=== PATIENT | female | born 1980 | race Caucasian/White ===

== ENCOUNTER 2020-01-28 13:12 | Observation (INO) | payer BC ==
[2020-01-28] MEDS ORDERED: SODIUM CHLORIDE 0.9% 1,000 ML IV STA (14:04)
[2020-01-28] MEDS ORDERED: ASPIRIN 81 MG PO STA (14:04)
--- NOTE | 2020-01-28 14:08 | ED ---
General Adult HPI - General Chief complaint: Arrhythmia/Palpitations Stated complaint: High Pulse Time Seen by Provider: 01/28/20 13:35 Source: patient, RN notes reviewed Mode of arrival: ambulatory Limitations: no limitations - History of Present Illness Initial comments: Patient is a pleasant 40-year-old female presenting to the emergency department with complaints of palpitations. Patient checked her heart rate on her heart rate was 161. Patient did have some sharp discomfort of her chest with associated tightness. Patient also felt short of breath. Patient is symptom- free at this time. Patient does have recordings from her watch with a heart rate 120 that is similar to EKG. Patient does have history of previous palpitations without diagnosis. Patient was at rest with onset of symptoms - Related Data Home Medications Medication Instructions Recorded Confirmed Levothyroxine Sodium [Synthroid] 112 mcg PO DAILY 01/28/20 01/28/20 Liothyronine Sodium [Cytomel] 10 mcg PO BID 01/28/20 01/28/20 busPIRone HCl [Buspar] 10 mg PO BID 01/28/20 01/28/20 hydroCHLOROthiazide [Hydrodiuril] 25 mg PO DAILY 01/28/20 01/28/20 Allergies Allergy/AdvReac Type Severity Reaction Status Date / Time No Known Allergies Allergy Verified 01/28/20 15:37 Review of Systems ROS Statement: Those systems with pertinent positive or pertinent negative responses have been documented in the HPI. ROS Other: All systems not noted in ROS Statement are negative. Constitutional: Denies: fever Eyes: Denies: eye pain ENT: Denies: ear pain Respiratory: Denies: cough Cardiovascular: Reports: as per HPI, palpitations Endocrine: Denies: fatigue Gastrointestinal: Denies: abdominal pain Genitourinary: Denies: dysuria Musculoskeletal: Denies: back pain Skin: Denies: rash Past Medical History Past Medical History: Hypertension, Thyroid Disorder History of Any Multi-Drug Resistant Organisms: None Reported Past Surgical History: No Surgical Hx Reported Past Psychological History: No Psychological Hx Reported Smoking Status: Never smoker Past Alcohol Use History: None Reported Past Drug Use History: None Reported General Exam Limitations: no limitations General appearance: alert, in no apparent distress Head exam: Present: normocephalic Eye exam: Present: normal appearance Neck exam: Present: normal inspection Respiratory exam: Present: normal lung sounds bilaterally Cardiovascular Exam: Present: tachycardia Expanded Peripheral pulses: 2+: Radial (R), Radial (L), Dorsalis Pedis (R), Dorsalis Pedis (L) GI/Abdominal exam: Present: soft. Absent: tenderness Extremities exam: Present: normal inspection. Absent: pedal edema, calf tenderness Neurological exam: Present: alert Psychiatric exam: Present: normal affect, normal mood Skin exam: Present: normal color Course Vital Signs 01/28/20 01/28/20 01/28/20 13:32 13:50 16:06 Temperature 98.5 F 97.5 F L Pulse Rate 135 H 95 Pulse Rate [ 116 H Lawyer ] Respiratory 20 18 Rate Blood Pressure 130/90 126/78 O2 Sat by Pulse 95 97 Oximetry - Reevaluation(s) Reevaluation #1: 01/28/20 15:19 Repeat EKG shows normal sinus rhythm 91. CT 128. QRS 84. QT 358. QTC 440. Normal axis. Normal QRS. No acute ST change EKG Findings - EKG Comments: EKG Findings:: Sinus tachycardia 126. CT 124. QRS 82. QT 302. QTC 437. Normal axis. Normal QRS. No acute ST change. Medical Decision Making - Medical Decision Making Patient reevaluated and resting comfortably in bed. Patient still has mild discomfort. Dr. sewell has been paged covering for Dr. Daniels, who admits for Dr. Nelson. Case was discussed with Dr. Vaughan, who will admit - Lab Data Result diagrams: 01/28/20 14:46 01/28/20 14:46 Lab Results 01/28/20 01/28/20 01/28/20 Range/Units 14:46 14:46 14:46 WBC 10.1 (3.8-10.6) k/uL RBC 5.00 (3.80-5.40) m/uL Hgb 15.3 (11.4-16.0) gm/dL Hct 46.7 H (34.0-46.0) % MCV 93.4 (80.0-100.0) fL MCH 30.7 (25.0-35.0) pg MCHC 32.8 (31.0-37.0) g/dL RDW 12.0 (11.5-15.5) % Plt Count 354 (150-450) k/uL Neutrophils % 69 % Lymphocytes % 22 % Monocytes % 6 % Eosinophils % 1 % Basophils % 1 % Neutrophils # 7.0 (1.3-7.7) k/uL Lymphocytes # 2.3 (1.0-4.8) k/uL Monocytes # 0.6 (0-1.0) k/uL Eosinophils # 0.1 (0-0.7) k/uL Basophils # 0.1 (0-0.2) k/uL PT 9.7 (9.0-12.0) sec INR 0.9 (<1.2) APTT 22.7 (22.0-30.0) sec Sodium 137 (137-145) mmol/L Potassium 3.6 (3.5-5.1) mmol/L Chloride 102 (98-107) mmol/L Carbon Dioxide 24 (22-30) mmol/L Anion Gap 11 mmol/L BUN 13 (7-17) mg/dL Creatinine 0.72 (0.52-1.04) mg/dL Est GFR (CKD-EPI)AfAm >90 (>60 ml/min/1.73 sqM) Est GFR (CKD-EPI)NonAf >90 (>60 ml/min/1.73 sqM) Glucose 96 (74-99) mg/dL Calcium 9.0 (8.4-10.2) mg/dL Magnesium 2.2 (1.6-2.3) mg/dL Total Bilirubin 0.6 (0.2-1.3) mg/dL AST 33 (14-36) U/L ALT 33 (4-34) U/L Alkaline Phosphatase 73 (38-126) U/L Troponin I (0.000-0.034) ng/mL Total Protein 8.1 (6.3-8.2) g/dL Albumin 4.6 (3.5-5.0) g/dL TSH 0.714 (0.465-4.680) mIU/L Free T4 1.37 (0.78-2.19) ng/dL Free T3 pg/mL 4.6 (2.8-5.3) pg/ml 01/28/20 Range/Units 14:46 WBC (3.8-10.6) k/uL RBC (3.80-5.40) m/uL Hgb (11.4-16.0) gm/dL Hct (34.0-46.0) % MCV (80.0-100.0) fL MCH (25.0-35.0) pg MCHC (31.0-37.0) g/dL RDW (11.5-15.5) % Plt Count (150-450) k/uL Neutrophils % % Lymphocytes % % Monocytes % % Eosinophils % % Basophils % % Neutrophils # (1.3-7.7) k/uL Lymphocytes # (1.0-4.8) k/uL Monocytes # (0-1.0) k/uL Eosinophils # (0-0.7) k/uL Basophils # (0-0.2) k/uL PT (9.0-12.0) sec INR (<1.2) APTT (22.0-30.0) sec Sodium (137-145) mmol/L Potassium (3.5-5.1) mmol/L Chloride (98-107) mmol/L Carbon Dioxide (22-30) mmol/L Anion Gap mmol/L BUN (7-17) mg/dL Creatinine (0.52-1.04) mg/dL Est GFR (CKD-EPI)AfAm (>60 ml/min/1.73 sqM) Est GFR (CKD-EPI)NonAf (>60 ml/min/1.73 sqM) Glucose (74-99) mg/dL Calcium (8.4-10.2) mg/dL Magnesium (1.6-2.3) mg/dL Total Bilirubin (0.2-1.3) mg/dL AST (14-36) U/L ALT (4-34) U/L Alkaline Phosphatase (38-126) U/L Troponin I <0.012 (0.000-0.034) ng/mL Total Protein (6.3-8.2) g/dL Albumin (3.5-5.0) g/dL TSH (0.465-4.680) mIU/L Free T4 (0.78-2.19) ng/dL Free T3 pg/mL (2.8-5.3) pg/ml - Radiology Data Radiology results: image reviewed (Chest x-ray shows no acute process) Disposition Clinical Impression: Tachycardia, Chest pain Disposition: ADMITTED IP TO THIS HOSP Is patient prescribed a controlled substance at d/c from ED?: No Decision Time: 15:59
--- NOTE | 2020-01-28 14:57 | XR ---
EXAMINATION TYPE: XR chest 2V DATE OF EXAM: 01/28/2020 COMPARISON: 09/06/2018 HISTORY: Chest pain TECHNIQUE: Frontal and lateral views of the chest are obtained. FINDINGS: There is no focal air space opacity. No evidence for pneumothorax. No pleural effusion. The cardiac silhouette size is within normal limits. The osseous structures are grossly intact. IMPRESSION: 1. No acute cardiopulmonary process.
[2020-01-28 15:06] LABS: Basophils # (A) 0.1 k/uL (0-0.2); Basophils % (A) 1 %; Eosinophils # (A) 0.1 k/uL (0-0.7); Eosinophils % (A) 1 %; HCT 46.7 % (34.0-46.0); HGB 15.3 gm/dL (11.4-16.0); Lymphocytes # (A) 2.3 k/uL (1.0-4.8); Lymphocytes % (A) 22 %; MCH 30.7 pg (25.0-35.0); MCHC 32.8 g/dL (31.0-37.0); MCV 93.4 fL (80.0-100.0); Mean Platelet Volume 7.3; Monocytes # (A) 0.6 k/uL (0-1.0); Monocytes % (A) 6 %; Neutrophils % (A) 69 %; Platelet Count 354 k/uL (150-450); WBC 10.1 k/uL (3.8-10.6)
[2020-01-28 15:19] LABS: INR 0.9 (<1.2); Partial Thromboplastin Time 22.7 sec (22.0-30.0); Prothrombin Time 9.7 sec (9.0-12.0)
[2020-01-28 15:20] LABS: ALT 33 U/L (4-34); AST 33 U/L (14-36); African American GFR (CKD) >90 (>60 ml/min/1.73 sqM); Albumin 4.6 g/dL (3.5-5.0); Alkaline Phosphatase 73 U/L (38-126); Anion Gap 11 mmol/L; Blood Urea Nitrogen 13 mg/dL (7-17); Carbon Dioxide 24 mmol/L (22-30); Chloride 102 mmol/L (98-107); Glucose 96 mg/dL (74-99); Magnesium 2.2 mg/dL (1.6-2.3); Non-African American GFR(CKD) >90 (>60 ml/min/1.73 sqM); Potassium 3.6 mmol/L (3.5-5.1); Sodium 137 mmol/L (137-145); Total Bilirubin 0.6 mg/dL (0.2-1.3); Total Protein 8.1 g/dL (6.3-8.2)
[2020-01-28 15:37] LABS: T4, Free (Free Thyroxine) 1.37 ng/dL (0.78-2.19)
[2020-01-28] MEDS ORDERED: NITROGLYCERIN SL TABS 0.4 MG TAB SUBLINGUAL PRN (15:59)
[2020-01-28] MEDS: NITROGLYCERIN OINT 1 INCH/GM PACKET TOPICAL SCH (17:48)
[2020-01-28] MEDS: busPIRone HCl 10 MG TAB PO SCH (20:19)
[2020-01-28] MEDS: LIOTHYRONINE SODIUM 5 MCG TAB PO SCH (20:19)
[2020-01-29] MEDS: NITROGLYCERIN OINT 1 INCH/GM PACKET TOPICAL SCH ×2 (01:44→05:48)
[2020-01-29 03:57] VITALS: TEMP 98.2
[2020-01-29 04:14] LABS: Cholesterol 152 mg/dL (<200); HDL Cholesterol 34 mg/dL (40-60); LDL Cholesterol,Calculated 85 mg/dL (0-99); Triglycerides 167 mg/dL (<150)
[2020-01-29] MEDS ORDERED: LEVOTHYROXINE 112 MCG TAB PO SCH (06:30)
[2020-01-29 08:44] VITALS: RESP 16
[2020-01-29] MEDS ORDERED: ASPIRIN 325 MG TAB PO SCH (09:00)
[2020-01-29] MEDS ORDERED: hydroCHLOROthiazide 25 MG TAB PO SCH (09:00)
[2020-01-29] MEDS: LIOTHYRONINE SODIUM 5 MCG TAB PO SCH (10:04)
[2020-01-29] MEDS: busPIRone HCl 10 MG TAB PO SCH (10:04)
--- NOTE | 2020-01-29 12:32 | P.HPIM ---
History of Present Illness This is a pleasant 40 years old female with past medical history of hypertension, hypothyroidism. She is a patient of Dr. Tilley and she sees his nurse practitioner Suad, she also follow-up with Dr. Fernández. Presents because of of dictation with chest pain or shortness of breath. She was at her dentist about 2 weeks ago and found her blood pressure 142/?, Rectal her she has had blood pressure and she gets anxious, yesterday she started having chest pain on the right upper chest, nonradiating about 45/10 in severity that like sharp with some dyspnea and no coughing. Her pain and dyspnea or completely resolved now. Over yesterday she noticed some palpitation and with apple watch she noticed her heart rate is up to 161, and running list on between 90s and 100. She gets it with simple walk and her heart rate increas es to 130s or 140s. Currently her symptoms improved. She denies smoking, alcohol or illicit drugs Vital signs stable. Labs unremarkable including CBC, BMP, INR, liver enzymes. Thyroid function tests, troponins 3 are less than 0.012. TSH and free T4 and free T3 aren't within normal limits. Chest x-ray: No acute process. EKG showing normal sinus rhythm at 91 BPM with QTC of 440. In the emergency room she was started on aspirin and nitroglycerin I offered test in the serum and patient declined, risks and benefits are explained also I explained for the patient the possibility of PE and doing computed tomography scan of the chest with IV contrast was risk of contrast including but not limited to ALLERGIC and nephrotoxicity are explained, patient does not want to do the test for now but she wants to do d-dimer and if his elevated and she agrees to do the test and she agrees to the risks Review of Systems CONSTITUTIONAL: No fever, no malaise, no fatigue. HEENT: No recent visual problems or hearing problems. Denied any sore throat. CARDIOVASCULAR: No orthopnea, PND, no palpitations, no syncope. PULMONARY: No shortness of breath, no cough, no hemoptysis. GASTROINTESTINAL: No diarrhea, no nausea, no vomiting, no abdominal pain. Normoactive bowel sounds. NEUROLOGICAL: No headaches, no weakness, no numbness. HEMATOLOGICAL: Denies any bleeding or petechiae. GENITOURINARY: Denies any burning micturition, frequency, or urgency. MUSCULOSKELETAL/RHEUMATOLOGICAL: Denies any joint pain, swelling, or any muscle pain. ENDOCRINE: Denies any polyuria or polydipsia. Past Medical History Past Medical History: Hypertension, Thyroid Disorder History of Any Multi-Drug Resistant Organisms: None Reported Past Surgical History: No Surgical Hx Reported Past Psychological History: No Psychological Hx Reported Smoking Status: Never smoker Past Alcohol Use History: None Reported Past Drug Use History: None Reported Medications and Allergies Home Medications Medication Instructions Recorded Confirmed Type Levothyroxine Sodium [Synthroid] 112 mcg PO DAILY 01/28/20 01/28/20 History Liothyronine Sodium [Cytomel] 10 mcg PO BID 01/28/20 01/28/20 History busPIRone HCl [Buspar] 10 mg PO BID 01/28/20 01/28/20 History hydroCHLOROthiazide [Hydrodiuril] 25 mg PO DAILY 01/28/20 01/28/20 History Allergies Allergy/AdvReac Type Severity Reaction Status Date / Time No Known Allergies Allergy Verified 01/28/20 15:37 Physical Exam Vitals: Vital Signs Temp Pulse Pulse Pulse Resp BP BP 01/29/20 09:00 95 16 01/29/20 08:42 98.2 F 95 16 119/81 01/29/20 03:00 98.2 F 88 18 116/57 01/28/20 20:26 91 105 H 18 01/28/20 20:23 98.1 F 105 H 18 105/70 01/28/20 16:13 98.0 F 91 16 127/83 01/28/20 16:06 97.5 F L 95 18 126/78 01/28/20 13:50 116 H 01/28/20 13:32 98.5 F 135 H 20 130/90 Pulse Ox 01/29/20 09:00 01/29/20 08:42 96 01/29/20 03:00 99 01/28/20 20:26 01/28/20 20:23 95 01/28/20 16:13 98 01/28/20 16:06 97 01/28/20 13:50 01/28/20 13:32 95 Intake and Output 01/28/20 01/29/20 01/29/20 22:59 06:59 14:59 Intake Total 240 Balance 240 Intake: Oral 240 Other: Voiding Method Toilet Toilet Toilet # Voids 2 1 # Bowel Movements 0 Weight 119.295 kg GENERAL: The patient is alert and oriented x3, not in any acute distress. Well developed, well nourished. HEENT: Pupils are round and equally reacting to light. EOMI. No scleral icterus. No conjunctival pallor. Normocephalic, atraumatic. No pharyngeal erythema. No t hyromegaly. CARDIOVASCULAR: S1 and S2 present. No murmurs, rubs, or gallops. PULMONARY: Chest is clear to auscultation, no wheezing or crackles. ABDOMEN: Soft, nontender, nondistended, normoactive bowel sounds. No palpable organomegaly. MUSCULOSKELETAL: No joint swelling or deformity. EXTREMITIES: No cyanosis, clubbing, or pedal edema. NEUROLOGICAL: Gross neurological examination did not reveal any focal deficits. SKIN: No rashes. No petechiae Results CBC & Chem 7: 01/28/20 14:46 01/28/20 14:46 Labs: Abnormal Lab Results - Last 24 Hours (Table) 01/28/20 01/28/20 Range/Units 14:46 14:46 Hct 46.7 H (34.0-46.0) % Triglycerides 167 H (<150) mg/dL HDL Cholesterol 34 L (40-60) mg/dL Thrombosis Risk Factor Assmnt - Choose All That Apply Each Factor Represents 1 point: Age 41-60 years Thrombosis Risk Factor Assessment Total Risk Factor Score: 1 Thrombosis Risk Factor Assessment Level: Low Risk Assessment and Plan Assessment: Palpitation, with episodic tachycardia Chest pain with some dyspnea, rule out cardiac causes. Completely resolved. We'll check d-dimer Hypertension Hypothyroidism Plan: This is a pleasant 40 years old female who presents with chest pain. No history of troponin, cardiology consult. Continue with aspirin. Check d-dimer, And if his elevated and patient agrees to CTA with IV contrast of the chest to rule out PE. Labs and medication were reviewed.. Continue same treatment. Continue with symptomatic treatment. Resume home medication. Monitor lytes and vitals. DVT and GI prophylaxis. Further recommendations of the clinical course of the patient DVT prophylaxis: Subcutaneous heparin GI Prophylaxis: Pepcid Prognosis is guarded
--- NOTE | 2020-01-29 12:59 | P.CRDCN ---
History of Present Illness Consult date: 01/29/20 Requesting physician: Bennett Leon Reason for Consult (text): Chest pain and tachycardia Consult reason: chest pain Chief complaint: Palpitations History of present illness: History of present illness: This is this is a 40-year-old female with past medical history of hypertension, hypothyroidism, depression. She states she had an episode of palpitations a couple years ago and found that her thyroid was low and has not had any problems recently. She followed up with her PCP about 2 weeks ago for high blood pressure was started on hydrochlorothiazide. She did have a repeat visit Friday of last week and at that time it was decided that she would be set up with a reporting coordinator for evaluation. Yesterday she found that her heart rate was 161 at rest on her fitness watch and she had initially developed sharp right upper chest pain and then felt a pressure across the upper chest area. She thought it was related to anxiety issues had problems with this in the past and takes medication for it. She came into [facility] emergency center found to have a heart rate of 105 and blood pressure 130/90, afebrile. CBC and CMP unremarkable. TSH 0.714. Troponin is negative on 3 draws. Triglycerides 167, cholesterol 152, LDL 85, HDL 34. Chest x-ray was normal. EKG was a sinus rhythm/sinus tachycardia at 126 bpm. At the time of evaluation, patient denies having any chest pain, palpitations, anxiety sensation. D-dimer 0.36. Review Of Systems: Constitutional: No fever, no chills. No weakness, fatigue or lethargy. EENT: No headache. No dizziness. Lungs: No shortness of breath, cough, no sputum production. No wheezing. Cardiovascular: No chest pain, no lower extremity edema. No palpitations. No paroxysmal nocturnal dyspnea. No orthopnea. No lightheadedness or dizziness. No syncopal episodes. Abdominal: No abdominal pain. No nausea, vomiting. No diarrhea. No constipation. No bloody or tarry stools.. No loss of appetite. Genitourinary: No dysuria, increased frequency, urgency. No urinary retention. Musculoskeletal: No myalgias. No muscle weakness, no gait dysfunction, no frequent falls. No back pain. No neck pain. Integumentary: No wounds, no lesions. No rash or pruritus. No unusual bruising. Neurologic: No aphasia. No facial droop. No change in mentation. No head injury. No headache. No paralysis. No paresthesia. Psychiatric: No depression. No anxiety. Endocrine: No abnormal blood sugars. Physical examination: Gen: This is a 40-year-old morbidly obese female. She is resting in bed and appears comfortable and in no acute distress. VS: Afebrile, heart rate 105, blood pressure 105/70, pulse ox 95% on room air. HEENT: Head is atraumatic, normocephalic. Pupils equal, round. Sclerae is anicteric. NECK: Supple. No JVD. No lymphadenopathy. No thyromegaly. LUNGS: Clear to auscultation. No wheezes or rhonchi. No intercostal retractions. HEART: Regular rate and rhythm. No murmur. ABDOMEN: Soft. Bowel sounds are present. No masses. No tenderness. EXTREMITIES: No pedal edema. No calf tenderness. Dorsalis pedis +2 bilaterally. NEUROLOGICAL: Patient is awake, alert and oriented x3. Cranial nerves 2 through 12 are grossly intact. Assessment: Palpitations secondary to sinus tachycardia, resolved Chest pain, resolved Hypothyroidism Generalized anxiety disorder Plan: Patient is cleared for discharge home Thank you kindly for this consultation Patient will follow with Dr. Hanks in the office. Nurse practitioner note has been reviewed, I agree with documented findings and plan of care. Patient was seen and examined. Past Medical History Past Medical History: Hypertension, Thyroid Disorder History of Any Multi-Drug Resistant Organisms: None Reported Past Surgical History: No Surgical Hx Reported Past Psychological History: No Psychological Hx Reported Smoking Status: Never smoker Past Alcohol Use History: None Reported Past Drug Use History: None Reported Medications and Allergies Home Medications Medication Instructions Recorded Confirmed Type Levothyroxine Sodium [Synthroid] 112 mcg PO DAILY 01/28/20 01/28/20 History Liothyronine Sodium [Cytomel] 10 mcg PO BID 01/28/20 01/28/20 History busPIRone HCl [Buspar] 10 mg PO BID 01/28/20 01/28/20 History hydroCHLOROthiazide [Hydrodiuril] 25 mg PO DAILY 01/28/20 01/28/20 History Allergies Allergy/AdvReac Type Severity Reaction Status Date / Time No Known Allergies Allergy Verified 01/28/20 15:37 Physical Exam Vitals: Vital Signs Temp Pulse Pulse Pulse Resp BP BP 01/29/20 09:00 95 16 01/29/20 08:42 98.2 F 95 16 119/81 01/29/20 03:00 98.2 F 88 18 116/57 01/28/20 20:26 91 105 H 18 01/28/20 20:23 98.1 F 105 H 18 105/70 01/28/20 16:13 98.0 F 91 16 127/83 01/28/20 16:06 97.5 F L 95 18 126/78 01/28/20 13:50 116 H 01/28/20 13:32 98.5 F 135 H 20 130/90 Pulse Ox 01/29/20 09:00 01/29/20 08:42 96 01/29/20 03:00 99 01/28/20 20:26 01/28/20 20:23 95 01/28/20 16:13 98 01/28/20 16:06 97 01/28/20 13:50 01/28/20 13:32 95 Intake and Output 01/28/20 01/29/20 01/29/20 22:59 06:59 14:59 Intake Total 240 240 Balance 240 240 Intake: Oral 240 240 Other: Voiding Method Toilet Toilet Toilet # Voids 2 1 # Bowel Movements 0 Weight 119.295 kg Results 01/28/20 14:46 01/28/20 14:46 Cardiac Enzymes 01/28/20 01/28/20 01/28/20 Range/Units 14:46 14:46 18:02 AST 33 (14-36) U/L Troponin I <0.012 <0.012 (0.000-0.034) ng/mL 01/28/20 Range/Units 20:32 AST (14-36) U/L Troponin I <0.012 (0.000-0.034) ng/mL Coagulation 01/28/20 Range/Units 14:46 PT 9.7 (9.0-12.0) sec APTT 22.7 (22.0-30.0) sec Lipids 01/28/20 Range/Units 14:46 Triglycerides 167 H (<150) mg/dL Cholesterol 152 (<200) mg/dL HDL Cholesterol 34 L (40-60) mg/dL CBC 01/28/20 Range/Units 14:46 WBC 10.1 (3.8-10.6) k/uL RBC 5.00 (3.80-5.40) m/uL Hgb 15.3 (11.4-16.0) gm/dL Hct 46.7 H (34.0-46.0) % Plt Count 354 (150-450) k/uL Comprehensive Metabolic Panel 01/28/20 Range/Units 14:46 Sodium 137 (137-145) mmol/L Potassium 3.6 (3.5-5.1) mmol/L Chloride 102 (98-107) mmol/L Carbon Dioxide 24 (22-30) mmol/L BUN 13 (7-17) mg/dL Creatinine 0.72 (0.52-1.04) mg/dL Glucose 96 (74-99) mg/dL Calcium 9.0 (8.4-10.2) mg/dL AST 33 (14-36) U/L ALT 33 (4-34) U/L Alkaline Phosphatase 73 (38-126) U/L Total Protein 8.1 (6.3-8.2) g/dL Albumin 4.6 (3.5-5.0) g/dL Current Medications Generic Name Dose Route Start Last Admin Trade Name Freq PRN Reason Stop Dose Admin Aspirin 325 mg 01/29/20 09:00 01/29/20 10:03 Aspirin PO 325 mg DAILY BRII Administration Buspirone HCl 10 mg 01/28/20 21:00 01/29/20 10:04 Buspar PO 10 mg BID BRII Administration Hydrochlorothiazide 25 mg 01/29/20 09:00 01/29/20 10:04 Hydrodiuril PO 25 mg DAILY BRII Administration Levothyroxine Sodium 112 mcg 01/29/20 06:30 01/29/20 05:48 Synthroid PO 112 mcg DAILY@0630 BRII Administration Liothyronine Sodium 10 mcg 01/28/20 21:00 01/29/20 10:04 Cytomel PO 10 mcg BID BRII Administration Nitroglycerin 0.4 mg 01/28/20 15:59 Nitrostat SUBLINGUAL Q5M PRN Chest Pain Nitroglycerin 0.5 inch 01/28/20 18:00 01/29/20 05:48 Nitro-Bid Oint TOPICAL 0.5 inch Q6HR BRII Administration Sodium Chloride 10 ml 01/28/20 21:00 01/28/20 20:19 Saline Flush IV 10 ml BID BRII Administration Intake and Output 01/28/20 01/29/20 01/29/20 22:59 06:59 14:59 Intake Total 240 240 Balance 240 240 Intake: Oral 240 240 Other: Voiding Method Toilet Toilet Toilet # Voids 2 1 # Bowel Movements 0 Weight 119.295 kg 01/28/20 14:46 01/28/20 14:46
[2020-01-29 15:10] VITALS: BP 138/82; PULSE 89
== END 2020-01-29 16:10 | disposition home or self-care (01) ==
LOC: EC 13:12 → 3NCARDOBS 15:59
PROVIDERS: ADMIT Internal Medicine; ATTEND Internal Medicine
DX: R07.89 Other chest pain (principal); R00.0 Tachycardia, unspecified; R06.02 Shortness of breath; I10 Essential (primary) hypertension; E03.9 Hypothyroidism, unspecified; F41.1 Generalized anxiety disorder; Z79.890 Hormone replacement therapy; Z79.899 Other long term (current) drug therapy; F32.9 Major depressive disorder, single episode, unspecified; E66.01 Morbid (severe) obesity due to excess calories; Z68.41 Body mass index [BMI] 40.0-44.9, adult; Z79.82 Long term (current) use of aspirin
CPT/HCPCS: 96360; 99285; 36415; 93005; 85379; 84439; 84481; 80061; 80053; 83735; 84443; 84484; 85025; 85610; 85730; 71046; G0378 ×2

== ENCOUNTER → 2020-04-06 | Outpatient (CLI) | payer BC ==
--- NOTE | 2020-04-06 18:47 | CONS ---
CONSULTATION DATE OF SERVICE: 04/06/2020 This 40-year-old lady has been evaluated in [facility] for possible obstructive sleep apnea-hypopnea syndrome. HISTORY OF PRESENT ILLNESS/SLEEP-WAKE EVALUATION: Patient's usual sleep schedule on working days is from 10 p.m. to 6:30 a.m. and on weekends from 11 p.m. until 8 a.m. Sometimes she has problems with falling asleep, but not more than for one hour. No TV in bedroom. She sleeps on the side position. She snores and wakes up from sleep up to 4 times, with 2 episodes of nocturia and positive history of panic attacks. In the morning the patient wakes up tired, has difficulties paying attention. She has episodes of irritability and anxiety during the day. [place] Sleepiness Scale is 4. PAST MEDICAL HISTORY: Positive for hypothyroidism, anxiety. PAST SURGICAL HISTORY: None. MEDICATIONS: 1. Synthroid 112 mcg once a day. 2. Cytomel 5 mcg two tablets once a day. 3. BuSpar 10 mg once a day. SOCIAL HISTORY: Negative for smoking or using alcohol. FAMILY HISTORY: Hypertension, hyperlipidemia, arthritis, sleep apnea, diabetes, thyroid problems, acid reflux. REVIEW OF SYSTEMS: Multiple awakenings from sleep. Difficulties initiating sleep. PHYSICAL EXAMINATION: GENERAL: A pleasant lady without distress. VITAL SIGNS: BP 133/72, HR 93, RR 15, height 5 feet 5-1/2 inches, weight 266.4 pounds, temperature 98.1, oxygen saturation at room air 100%. BMI 43.5. HEENT: PERRLA, EOMI. Evaluation of oropharynx showed tongue protrudes midline. Extremely low position of soft palate. Mallampati IV. NECK: Supple. No JVD. Thyroid is not palpable. Neck measures 15 inches in circumference. LUNGS: Clear to percussion and to auscultation. Good air exchange. No wheezing or rhonchi. HEART: S1, S2 regular. No murmurs, gallops or rubs. ABDOMEN: Obese. EXTREMITIES: No clubbing or cyanosis. ACID PAINTER: Awake, alert, and oriented X3. Cranial nerves 2 to 7 intact. There is no fasciculation or atrophy. noted. No focal deficits observed. IMPRESSION: 1. Snoring, multiple awakenings from sleep, extremely low position of soft palate; possible obstructive sleep apnea-hypopnea syndrome. 2. Obesity. BMI 43.5. 3. Hypothyroidism. 4. Anxiety. PLAN: 1. Home sleep apnea test for for evaluation of patient's breathing during sleep. 2. CPAP/BiPAP titration if sleep study confirms obstructive sleep apnea-hypopnea syndrome. 3. Preferable position during sleep on the side. 4. No driving if patient feels any sleepiness. 5. I will see patient for follow up visit to explain results of testing and following plan. Thank you very much for referring this patient for consultation. Sincerely, Alden Corley MD, PhD, FAASM Diplomat of [place] [employer] [place] [employer] Certified [place] Administrator [facility] [place] MMODL / IJN: [id number] /
== END | disposition home or self-care (01) ==
LOC: SLEEP 17:11
PROVIDERS: ATTEND Internal Medicine
DX: R06.83 Snoring (principal); E03.9 Hypothyroidism, unspecified; F41.9 Anxiety disorder, unspecified; E66.9 Obesity, unspecified; Z68.41 Body mass index [BMI] 40.0-44.9, adult; Z99.89 Dependence on other enabling machines and devices
CPT/HCPCS: 99211

== ENCOUNTER → 2020-07-13 | Outpatient (CLI) | payer BC ==
--- NOTE | 2020-07-13 23:12 | SFUN ---
SLEEP CENTER FOLLOW UP NOTE DATE OF SERVICE: 07/13/2020 This is a 40-year-old lady who has been followed in Sleep Center for treatment of obstructive sleep apnea-hypopnea syndrome. In April the patient had a home sleep apnea test which showed mild obstructive sleep apnea-hypopnea syndrome with total apnea- hypopnea index 9.4. Then the patient was started on treatment with CPAP therapy because she had additional problems related to anxiety. The patient tried to use the machine, but usually she would just take her mask off after starting to use it while falling asleep. [place] Sleepiness Scale today is 2. I checked her CPAP unit. It is on automatic regimen with a pressure 5 to 10, average pressure of 5. Usage is 21/30 nights, but none of the nights for more than 4 hours. Average usage only 0.4 hour. Leak is 16 L/minute. Apnea-hypopnea index reading from the machine is only 0.5, which is normal. MEDICATIONS: Synthroid, Cytomel, BuSpar. PHYSICAL EXAMINATION: GENERAL: A pleasant patient in no distress. VITAL SIGNS: BP 143/95, HR 92, RR 15, weight 266.2, temperature 97.6, oxygen saturation at room air 96%. HEENT: PERRLA, EOMI. Evaluation of oropharynx showed tongue protrudes midline. Extremely low position of soft palate. Mallampati IV. NECK: Supple. No JVD. Thyroid is not palpable. LUNGS: Clear to percussion and to auscultation. Good air exchange. No wheezing or rhonchi. HEART: S1, S2 regular. No murmurs, gallops or rubs. ABDOMEN: Obese. EXTREMITIES: No clubbing or cyanosis. ENROLLMENT SPECIALIST: Awake, alert, and oriented X3. Cranial nerves 2 to 7 intact. There is no fasciculation or atrophy. noted. No focal deficits observed. IMPRESSION: 1. Mild obstructive sleep apnea-hypopnea syndrome. At the present time, the patient does not demonstrate good compliance with CPAP treatment. 2. Obesity. 3. Hypothyroidism. 4. History of anxiety. PLAN: 1. Patient will try to use CPAP equipment every night for the whole night. 2. We will consider using a different mask. At present the patient is using nasal pillows; possibly they irritate her nose. We could try a nasal mask. 3. Losing weight. 4. Sleep hygiene with regular time in bed for at least 8 hours. 5. Preferable position during sleep is on the side. Thank you very much for allowing me to participate in the management of your patient. Sincerely, Alden Corley MD, PhD, FAASM Diplomat of [place] [employer] [place] [employer] of [facility] [place] MMTONY / TRISHA: [id number] /
== END | disposition home or self-care (01) ==
LOC: SLEEP 15:58
PROVIDERS: ATTEND Internal Medicine
DX: G47.33 Obstructive sleep apnea (adult) (pediatric) (principal); E66.9 Obesity, unspecified; E03.9 Hypothyroidism, unspecified; Z86.59 Personal history of other mental and behavioral disorders; Z99.89 Dependence on other enabling machines and devices; Z79.890 Hormone replacement therapy; Z79.899 Other long term (current) drug therapy

== ENCOUNTER → 2020-09-01 | Outpatient (CLI) | payer BC ==
--- NOTE | 2020-09-01 08:45 | US ---
EXAMINATION TYPE: US abdomen complete DATE OF EXAM: 09/01/2020 COMPARISON: NONE CLINICAL HISTORY: R10.811 right upper quadrant tenderness,. RUQ Pain. EXAM MEASUREMENTS: Liver Length: 15.3 cm Gallbladder Wall: .3 cm CBD: .6 cm Spleen: 11.8 cm Right Kidney: 10.8 x 4.2 x 3.6 cm Left Kidney: 11.3 x 5.1 x 3.9 cm Pancreas: Tail obscured by overlying bowel gas Liver: Hypoechoic area seen left lobe .8 x .7 x 1.4 cm Gallbladder: No stones seen Evidence for sonographic Mcghee's sign: No CBD: wnl Spleen: wnl Right Kidney: wnl Left Kidney: wnl Upper IVC: wnl Abd Aorta: wnl IMPRESSION: 1. Small hypoechoic nodule left lobe of the liver measuring 1.4 x 8 mm does not meet the criteria of a simple cyst. Consider follow-up MRI for further evaluation.
== END | disposition home or self-care (01) ==
LOC: RADUSWWP 07:36
PROVIDERS: ATTEND Family Medicine
DX: K76.89 Other specified diseases of liver (principal)
CPT/HCPCS: 76700

== ENCOUNTER 2021-01-29 09:32 | Emergency (ER) | payer BC ==
[2021-01-29 09:35] VITALS: RESP 18
[2021-01-29] MEDS ORDERED: SODIUM CHLORIDE 0.9% 1,000 ML IV STA (10:18)
--- NOTE | 2021-01-29 10:24 | ED ---
Female Urogenital HPI - General Chief complaint: Urogenital Stated complaint: pelvic pain Time Seen by Provider: 01/29/21 10:04 Source: patient Mode of arrival: ambulatory Limitations: no limitations - History of Present Illness Initial comments: 41-year-old female presented emergency Department with a chief complaint of abdominal pain. Patient reports she gets certain episodes like this where she starts to experience cramping pelvic pain and an urge to have a bowel movement but she is not able to immediately for about 10-15 minutes then she is able to have a bowel movement patient but is usually diarrhea . States this usually occurs whenever she is having her menstrual period which she is currently on at this time. Patient reports the pain is located in the suprapubic region. Did report some nausea when this occurred but has since resolved. She also reports the pain has mostly resolved right now it is minimal at this time. She denies a ny hematuria, hematochezia or melena. Denies any concern for . Denies any vaginal symptoms. Denies any previous abdominal surgical history. Last Menstrual Period: 01/28/21 - Related Data Home Medications Medication Instructions Recorded Confirmed Levothyroxine Sodium [Synthroid] 112 mcg PO DAILY 01/28/20 01/29/21 Liothyronine Sodium [Cytomel] 10 mcg PO BID 01/28/20 01/29/21 Allergies Allergy/AdvReac Type Severity Reaction Status Date / Time No Known Allergies Allergy Verified 01/29/21 11:08 Review of Systems ROS Statement: Those systems with pertinent positive or pertinent negative responses have been documented in the HPI. ROS Other: All systems not noted in ROS Statement are negative. Past Medical History Past Medical History: Hypertension, Thyroid Disorder History of Any Multi-Drug Resistant Organisms: None Reported Past Surgical History: No Surgical Hx Reported Past Psychological History: No Psychological Hx Reported Smoking Status: Never smoker Past Alcohol Use History: None Reported Past Drug Use History: None Reported General Exam Limitations: no limitations General appearance: alert, in no apparent distress, obese Head exam: Present: atraumatic, normocephalic, normal inspection Eye exam: Present: normal appearance, PERRL, EOMI Pupils: Present: normal accommodation ENT exam: Present: normal exam, normal oropharynx, mucous membranes moist Neck exam: Present: normal inspection, full ROM. Absent: tenderness, ly mphadenopathy Respiratory exam: Present: normal lung sounds bilaterally. Absent: respiratory distress, wheezes, rales Cardiovascular Exam: Present: regular rate, normal heart sounds. Absent: systolic murmur, diastolic murmur GI/Abdominal exam: Present: soft, tenderness (Minimal suprapubic tenderness). Absent: distended, guarding, rebound, rigid Extremities exam: Present: normal inspection, full ROM, normal capillary refill. Absent: tenderness, pedal edema, joint swelling Back exam: Present: normal inspection, full ROM. Absent: tenderness, CVA tenderness (R), CVA tenderness (L) Neurological exam: Present: alert, oriented X3 Psychiatric exam: Present: normal affect, normal mood Skin exam: Present: warm, dry, intact, normal color Course Vital Signs 01/29/21 01/29/21 09:33 13:15 Temperature 97.9 F 97.7 F Pulse Rate 111 H 101 H Respiratory 18 18 Rate Blood Pressure 138/87 136/88 O2 Sat by Pulse 96 98 Oximetry Medical Decision Making - Medical Decision Making 41-year-old female presented emergency Department with a chief complaint of abdominal pain. On physical examination, suprapubic and lower abdominal tenderness. She also complains of some diarrhea. KUB shows no signs of obstruction but there is signs to suggest arthritis. Laboratory work reveals mild leukocytosis. CMP is unremarkable. UA shows hematuria, patient is currently on her menstrual period. At this time. Patient was only given IV fluids. Diarrhea is likely secondary to enteritis. Patient was advised to follow with her primary care physician. Return bodies were thoroughly discussed patient is an attending agreeable. Case discussed with physician. - Lab Data Result diagrams: 01/29/21 10:50 01/29/21 12:30 Lab Results 01/29/21 01/29/21 01/29/21 Range/Units 10:50 10:50 10:50 WBC 13.5 H (3.8-10.6) k/uL RBC 5.11 (3.80-5.40) m/uL Hgb 15.9 (11.4-16.0) gm/dL Hct 48.9 H (34.0-46.0) % MCV 95.6 (80.0-100.0) fL MCH 31.0 (25.0-35.0) pg MCHC 32.5 (31.0-37.0) g/dL RDW 13.1 (11.5-15.5) % Plt Count 306 (150-450) k/uL MPV 8.0 Neutrophils % 85 % Lymphocytes % 10 % Monocytes % 4 % Eosinophils % 1 % Basophils % 0 % Neutrophils # 11.4 H (1.3-7.7) k/uL Lymphocytes # 1.4 (1.0-4.8) k/uL Monocytes # 0.5 (0-1.0) k/uL Eosinophils # 0.2 (0-0.7) k/uL Basophils # 0.0 (0-0.2) k/uL Sodium (137-145) mmol/L Potassium (3.5-5.1) mmol/L Chloride (98-107) mmol/L Carbon Dioxide (22-30) mmol/L Anion Gap mmol/L BUN (7-17) mg/dL Creatinine (0.52-1.04) mg/dL Est GFR (CKD-EPI)AfAm (>60 ml/min/1.73 sqM) Est GFR (CKD-EPI)NonAf (>60 ml/min/1.73 sqM) Glucose (74-99) mg/dL Calcium (8.4-10.2) mg/dL Total Bilirubin (0.2-1.3) mg/dL AST (14-36) U/L ALT (4-34) U/L Alkaline Phosphatase (38-126) U/L Total Protein (6.3-8.2) g/dL Albumin (3.5-5.0) g/dL Lipase (23-300) U/L Urine Color Light Red Urine Appearance Cloudy H (Clear) Urine pH 5.0 (5.0-8.0) Ur Specific [place] 1.024 (1.001-1.035) Urine Protein 1+ H (Negative) Urine Glucose (UA) Negative (Negative) Urine Ketones Negative (Negative) Urine Blood Large H (Negative) Urine Nitrite Negative (Negative) Urine Bilirubin Negative (Negative) Urine Urobilinogen <2.0 (<2.0) mg/dL Ur Leukocyte Esterase Small H (Negative) Urine RBC >182 H (0-5) /hpf Urine WBC 7 H (0-5) /hpf Ur Squamous Epith Cells 4 (0-4) /hpf Urine HCG, Qual Not Detected (Not Detectd) 08/23/21 Range/Units 12:30 WBC (3.8-10.6) k/uL RBC (3.80-5.40) m/uL Hgb (11.4-16.0) gm/dL Hct (34.0-46.0) % MCV (80.0-100.0) fL MCH (25.0-35.0) pg MCHC (31.0-37.0) g/dL RDW (11.5-15.5) % Plt Count (150-450) k/uL MPV Neutrophils % % Lymphocytes % % Monocytes % % Eosinophils % % Basophils % % Neutrophils # (1.3-7.7) k/uL Lymphocytes # (1.0-4.8) k/uL Monocytes # (0-1.0) k/uL Eosinophils # (0-0.7) k/uL Basophils # (0-0.2) k/uL Sodium 139 (137-145) mmol/L Potassium 4.1 (3.5-5.1) mmol/L Chloride 109 H (98-107) mmol/L Carbon Dioxide 20 L (22-30) mmol/L Anion Gap 10 mmol/L BUN 11 (7-17) mg/dL Creatinine 0.65 (0.52-1.04) mg/dL Est GFR (CKD-EPI)AfAm >90 (>60 ml/min/1.73 sqM) Est GFR (CKD-EPI)NonAf >90 (>60 ml/min/1.73 sqM) Glucose 90 (74-99) mg/dL Calcium 8.5 (8.4-10.2) mg/dL Total Bilirubin 0.5 (0.2-1.3) mg/dL AST 23 (14-36) U/L ALT 15 (4-34) U/L Alkaline Phosphatase 73 (38-126) U/L Total Protein 7.5 (6.3-8.2) g/dL Albumin 4.1 (3.5-5.0) g/dL Lipase 52 (23-300) U/L Urine Color Urine Appearance (Clear) Urine pH (5.0-8.0) Ur Specific [place] (1.001-1.035) Urine Protein (Negative) Urine Glucose (UA) (Negative) Urine Ketones (Negative) Urine Blood (Negative) Urine Nitrite (Negative) Urine Bilirubin (Negative) Urine Urobilinogen (<2.0) mg/dL Ur Leukocyte Esterase (Negative) Urine RBC (0-5) /hpf Urine WBC (0-5) /hpf Ur Squamous Epith Cells (0-4) /hpf Urine HCG, Qual (Not Detectd) - EKG Data EKG Comments: Sinus rhythm Ventricular rate 82, PA 124, QRS 70, QTC 455. Disposition Clinical Impression: Abdominal pain, Enteritis Disposition: HOME SELF-CARE Condition: Stable Instructions (If sedation given, give patient instructions): Abdominal Pain (ED) Additional Instructions: Follow with primary care physician. Return to emergency department if symptoms worsen. Is patient prescribed a controlled substance at d/c from ED?: No Referrals: Bill Hamm DO [Primary Care Provider] - 1-2 days Time of Disposition: 13:13
[2021-01-29 11:05] LABS: Basophils % (A) 0 %; Eosinophils # (A) 0.2 k/uL (0-0.7); Eosinophils % (A) 1 %; HCT 48.9 % (34.0-46.0); HGB 15.9 gm/dL (11.4-16.0); Lymphocytes # (A) 1.4 k/uL (1.0-4.8); Lymphocytes % (A) 10 %; MCHC 32.5 g/dL (31.0-37.0); MCV 95.6 fL (80.0-100.0); Monocytes # (A) 0.5 k/uL (0-1.0); Monocytes % (A) 4 %; Neutrophils # (A) 11.4 k/uL (1.3-7.7); Neutrophils % (A) 85 %; Platelet Count 306 k/uL (150-450); RBC 5.11 m/uL (3.80-5.40); RDW 13.1 % (11.5-15.5); WBC 13.5 k/uL (3.8-10.6)
--- NOTE | 2021-01-29 11:47 | XR ---
EXAMINATION TYPE: XR KUB DATE OF EXAM: 01/29/2021 Comparison: None Clinical History: 41-year-old female abdominal pain Findings: Lung bases are clear. No evidence for free intraperitoneal air. No dilated small bowel. A few small air-fluid levels noted within the colon. No dilated small bowel or differential air-fluid levels seen. No suspicious calcifications. Impression: A few small colonic air-fluid levels suggesting liquid stool. Consider enteritis or ileus. No evidenc e for free air or bowel obstruction.
[2021-01-29 11:57] LABS: Appearance,Urine Cloudy (Clear); Bilirubin,Urine Negative (Negative); Blood,Urine Large (Negative); Color,Urine Light Red; Glucose,Urine (UA) Negative (Negative); Ketones,Urine Negative (Negative); Leukocyte Esterase,Urine Small (Negative); Nitrite,Urine Negative (Negative); Protein,Urine 1+ (Negative); RBC,Urine >182 /hpf (0-5); Specific Gravity,Urine 1.024 (1.001-1.035); Squamous Epithelial Cell,Urine 4 /hpf (0-4); Urobilinogen,Urine <2.0 mg/dL (<2.0); WBC,Urine 7 /hpf (0-5)
[2021-01-29 12:58] LABS: ALT 15 U/L (4-34); AST 23 U/L (14-36); African American GFR (CKD) >90 (>60 ml/min/1.73 sqM); Albumin 4.1 g/dL (3.5-5.0); Alkaline Phosphatase 73 U/L (38-126); Anion Gap 10 mmol/L; Blood Urea Nitrogen 11 mg/dL (7-17); Calcium 8.5 mg/dL (8.4-10.2); Carbon Dioxide 20 mmol/L (22-30); Chloride 109 mmol/L (98-107); Glucose 90 mg/dL (74-99); Lipase 52 U/L (23-300); Non-African American GFR(CKD) >90 (>60 ml/min/1.73 sqM); Potassium 4.1 mmol/L (3.5-5.1); Sodium 139 mmol/L (137-145); Total Bilirubin 0.5 mg/dL (0.2-1.3); Total Protein 7.5 g/dL (6.3-8.2)
[2021-01-29 15:55] VITALS: BP 136/88; PULSE 101; TEMP 97.7
== END 2021-01-29 13:15 | disposition home or self-care (01) ==
LOC: EC 09:32
DX: K52.9 Noninfective gastroenteritis and colitis, unspecified (principal); I10 Essential (primary) hypertension; E07.9 Disorder of thyroid, unspecified; Z79.890 Hormone replacement therapy
CPT/HCPCS: 36415; 74018; 80053; 81001; 81025; 83690; 85025; 93005; 96360; 99284

== ENCOUNTER → 2021-02-21 | Outpatient (CLI) | payer BC ==
--- NOTE | 2021-02-21 11:38 | CT ---
EXAMINATION TYPE: CT abdomen pelvis w con DATE OF EXAM: 02/21/2021 HISTORY: Lower pelvic and perineal pain CT DLP: 2255.2mGycm Automated Exposure Control for Dose Reduction was Utilized. CONTRAST: CT scan of the abdomen and pelvis is performed with IV Contrast, patient injected with 100 mL of Isov ue 300. COMPARISON: Abdominal x-ray January 29, 2021. Ultrasound abdomen September 01, 2020 FINDINGS: LUNG BASES: No significant abnormality is appreciated. LIVER/GB: Visualized liver is hypodense relative to spleen consistent with mild diffuse fatty infiltr ation. PANCREAS: No significant abnormality is seen. SPLEEN: Small splenule anterior hilum axial image 24 incidentally noted.. ADRENALS: No significant abnormality is seen. KIDNEYS: Occasional tiny hypodense lesions throughout both kidneys consistent with benign simple cyst s. Symmetric cortical medullary uptake and excretion is seen without hydronephrosis. BOWEL: Oral contrast reaches level proximal sigmoid colon. No suspicious small or large bowel dilatat ion. Small size hiatal hernia. UTERUS/ADNEXA: Anteverted uterus projects to left of midline. There is lobulated isodense mass along the left fundus consistent with intrauterine subserosal fibroid. No free fluid. Normal size bilateral ovaries axial image 72. LYMPH NODES: No greater than 1cm abdominal or pelvic lymph nodes are appreciated. OSSEOUS STRUCTURES: Moderate disc space narrowing lumbosacral junction. Clgu-ag-uvrbnfos facet arthro angel mid to lower lumbar spine. OTHER: Tiny fat-containing umbilical hernia. IMPRESSION: No acute finding is seen to account for patient's clinical symptoms of pelvic and perinea l pain. Other incidental findings as noted above.
== END | disposition home or self-care (01) ==
LOC: RADCTMAIN 02-16 15:52
PROVIDERS: ATTEND Family Medicine
DX: R10.2 Pelvic and perineal pain (principal); R10.84 Generalized abdominal pain
CPT/HCPCS: 74177; Q9967

== ENCOUNTER → 2023-01-02 | Outpatient (CLI) | payer BC ==
--- NOTE | 2023-01-02 10:26 | CT ---
EXAMINATION TYPE: CT abdomen wo con CT DLP: 322 mGycm, Automated exposure control for dose reduction was used. DATE OF EXAM: 01/02/2023 8:09 AM COMPARISON: CT abdomen pelvis most recent from 02/21/2021 CLINICAL INDICATION:Female, 42 years old with history of R19.09 K21.9 Q40.1; Bulge under breast bon e TECHNIQUE: Axial CT of the abdomen. Sagittal and [facility] Contrast used: mL of , (none if empty) Oral contrast used: with Oral Contrast (none if empty) FINDINGS: LOWER CHEST: Unremarkable ABDOMEN LIVER: Unremarkable GALLBLADDER AND BILE DUCTS: Unremarkable. PANCREAS: Unremarkable. SPLEEN: Small splenule is present. ADRENAL GLANDS: Unremarkable. KIDNEYS AND URETERS: No evidence of hydronephrosis or renal calculus. The ureters are unremarkable. STOMACH AND BOWEL: No evidence of bowel obstruction. PERITONEUM/RETROPERITONEUM: No evidence of pneumoperitoneum or free fluid. VASCULATURE: No evidence of aortic aneurysm. MUSCULOSKELETAL: No acute osseous abnormalities, there is a protuberant xiphoid process just under th e breast bone. No suspicious masses within the subcutaneous tissues. LYMPH NODES: No gross evidence for lymphadenopathy. SOFT TISSUE/ABDOMINAL WALL: Unremarkable IMPRESSION: No evidence for subcutaneous mass upper the abdomen. There is a protuberant xiphoid process which cou ld correlate patient's finding bulge which is located just under the sternum.
== END | disposition home or self-care (01) ==
LOC: RADCTMAIN 07:20
PROVIDERS: ATTEND Family Medicine
DX: K21.9 Gastro-esophageal reflux disease without esophagitis (principal); Q40.1 Congenital hiatus hernia; R19.09 Other intra-abdominal and pelvic swelling, mass and lump
CPT/HCPCS: 74150

== ENCOUNTER 2024-08-01 12:00 | Emergency (ER) | payer BC ==
[2024-08-01 12:19] VITALS: TEMP 98.2
[2024-08-01] MEDS: ASPIRIN 81 MG PO STA (13:05)
[2024-08-01] MEDS: SODIUM CHLORIDE 0.9% 1,000 ML IV STA (13:05)
[2024-08-01 13:21] LABS: Basophils # (A) 0.1 k/uL (0-0.2); Basophils % (A) 1 %; Eosinophils # (A) 0.2 k/uL (0-0.7); Eosinophils % (A) 2 %; HCT 44.3 % (34.0-46.0); HGB 14.6 gm/dL (11.4-16.0); Lymphocytes # (A) 1.9 k/uL (1.0-4.8); Lymphocytes % (A) 20 %; MCH 30.5 pg (25.0-35.0); MCHC 32.9 g/dL (31.0-37.0); MCV 92.8 fL (80.0-100.0); Mean Platelet Volume 6.9; Monocytes # (A) 0.4 k/uL (0-1.0); Monocytes % (A) 4 %; Neutrophils % (A) 72 %; Platelet Count 353 k/uL (150-450); RBC 4.78 m/uL (3.80-5.40); RDW 12.7 % (11.5-15.5); WBC 9.7 k/uL (3.8-10.6)
[2024-08-01 13:35] LABS: ALT 21 U/L (4-34); AST 24 U/L (14-36); African American GFR (CKD) >90 (>60 ml/min/1.73 sqM); Albumin 4.5 g/dL (3.5-5.0); Alkaline Phosphatase 63 U/L (38-126); Anion Gap 13 mmol/L; Blood Urea Nitrogen 10 mg/dL (7-17); Calcium 9.1 mg/dL (8.4-10.2); Carbon Dioxide 20 mmol/L (22-30); Chloride 106 mmol/L (98-107); Glucose 93 mg/dL (74-99); Lipase 74 U/L (23-300); Magnesium 2.1 mg/dL (1.6-2.3); Non-African American GFR(CKD) >90 (>60 ml/min/1.73 sqM); Partial Thromboplastin Time 23.9 sec (22.0-30.0); Prothrombin Time 11.3 sec (10.0-12.5); Sodium 139 mmol/L (137-145); Total Bilirubin 0.7 mg/dL (0.2-1.3)
[2024-08-01 13:44] LABS: NT-Pro-B-Type Natriuretic Pept 88 pg/mL
--- NOTE | 2024-08-01 13:55 | ED ---
General Adult HPI - General Chief complaint: Chest Pain Stated complaint: chest pain Time Seen by Provider: 08/01/24 12:24 Source: patient Mode of arrival: ambulatory Limitations: no limitations - History of Present Illness Initial comments: Patient is a 44-year-old female past medical hypothyroidism presenting today for headache, hypertension and chest pain. Patient states she had a migraine headache on Friday like she normally would and her headache improved however she has had a slight headache that has continued throughout the weekend which is not normal for her. States over the last few days she has also noted bilateral chest pain that varies between being pressure-like and sharp. It does not occur with any particular pattern and does not seem to be exacerbated by ambulation or activity. Sometimes seems to be exacerbated by changing positions.. She has denies or hemoptysis. Chest pain does not seem to occur with any particular pat tern. No history ACS, no first-degree relatives with stroke or ACS, take aspirin yesterday but is unsure if it relieved her pain. Endorses 2/10 chest pain currently. Endorse associated pressure in her ears, so she went to an urgent care this morning, patient's blood pressure was 147/101 so patient was sent to the emergency department for further evaluation. Patient states she has no history of high blood pressure and her diastolic numbers runs around 70 typically. EKG was performed at urgent care that did not show any abnormalities. Patient denies associated shortness of breath, lower extremity swelling, no recent travel surgeries or hospitalizations, patient is a non- smoker. Is not on any type of control or estrogen replacement therapy. - Related Data Home Medications Medication Instructions Recorded Confirmed Levothyroxine Sodium [Synthroid] 112 mcg PO DAILY 01/28/20 01/29/21 Liothyronine Sodium [Cytomel] 10 mcg PO BID 01/28/20 01/29/21 Allergies Allergy/AdvReac Type Severity Reaction Status Date / Time No Known Allergies Allergy Verified 08/01/24 12:19 Review of Systems ROS Statement: Those systems with pertinent positive or pertinent negative responses have been documented in the HPI. ROS Other: All systems not noted in ROS Statement are negative. Past Medical History Past Medical History: Thyroid Disorder History of Any Multi-Drug Resistant Organisms: None Reported Past Surgical History: No Surgical Hx Reported Past Psychological History: No Psychological Hx Reported Smoking Status: Never smoker Past Alcohol Use History: None Reported Past Drug Use History: None Reported General Exam - General Exam Comments Initial Comments: PE: CONSTITUTIONAL: No apparent distress, well appearing SKIN: Warm, dry, no jaundice, hives or petechiae EYES: Pupils are equally round, extraocular movements intact without nystagmus, clear conjunctiva, non-icteric sclera HENT: Normocephalic, atraumatic, moist mucus membranes, oropharynx clear without exudates NECK: , Full range of motion, normal appearance PULMONARY: Clear to auscultation without wheezes, rhonchi, or rales, normal excursion, no accessory muscle use and no stridor CARDIOVASCULAR: Regular rate, rhythm, normal S1 and S2. No appreciated murmurs, rubs or gallops. Strong radial pulses with intact distal perfusion. No lower extremity edema, no chest wall tenderness to palpation GASTROINTESTINAL: Soft, active bowel sounds throughout, non-tender, non- distended, no palpable masses, no rebound or guarding. No hepatosplenomegaly GENITOURINARY: MUSCULOSKELETAL: Extremities have no gross deformity, no edema, redness, or swelling. No calf swelling NEUROLOGIC:_a/o x 3, GCS 15, normal mentation and speech. Moves all extremities x 4 without motor or sensory deficit, cranial nerves: II (visual sotomayor without defects), III, IV and (extraocular movements are intact, pupils are equal with normal reaction to light), V (intact facial sensation and jaw opening), VII (no facial droop), IX and X (normal palate movement, midline uvula, normal voice), XI (symmetrical shoulder shrug and lateral head rotation against resistance), XII (midline tongue protrusion). Motor strength is 5/5 in all extremities. No abnormal movements. Normal muscle tone. Sensation to light touch is intact bilaterally. No cerebellar signs ([id number], afex-gy-rois, and rapid alternating movements are normal) PSYCHIATRIC:_normal mood and affect, thought process is clear and linear Limitations: no limitations Course Vital Signs 08/01/24 08/01/24 08/01/24 12:16 14:27 15:19 Temperature 98.2 F Pulse Rate 101 H 80 74 Respiratory 20 18 18 Rate Blood Pressure 154/105 146/94 141/81 O2 Sat by Pulse 97 98 98 Oximetry EKG Findings - EKG Comments: EKG Findings:: Sinus tachycardia, rate 100 bpm VT interval 138 ms QT/QTc 331/388 ms, normal axis, no ST elevations or depressions, no arrhythmia, no STEMI Medical Decision Making - Medical Decision Making Was pt. sent in by a medical professional or institution (, PA, ROTATIONAL MOULDING OPERATOR, urgent care, hospital, or detention...) When possible be specific @ -No Did you speak to anyone other than the patient for history (EMS, parent, family, police, friend...)? What history was obtained from this source @ -No Did you review nursing and triage notes (agree or disagree)? Why? @ -I reviewed nursing and triage notes Were old charts reviewed (outside hosp., previous admission, EMS record, old EKG, old radiological studies, urgent care reports/EKG's, detention records)? Report findings @ -Medical records reviewed-reviewed EKG sent from urgent care, no changes from today's EKG here in the ER, sinus tachycardia otherwise no arrhythmia or ST elevations or depressions Differential Diagnosis (chest pain, altered mental status, abdominal pain women, abdominal pain men, vaginal bleeding, weakness, fever, dyspnea, syncope, headache, dizziness, GI bleed, back pain, seizure, CVA, palpatations, mental health, musculoskeletal)? @Differential Chest Pain: Stable Angina, Unstable Angina, STEMI, NSTEMI pericarditis, pleurisy, chostochondirits, Pneumothorax, Musculoskeletal, Esophageal Spasm GERD, Cholecystitis, Pancreatitis, this is not meant to be an all-inclusive list. Differential Headache: Migraine, tension, cluster, central venous thrombosis, intracranial mass, sinusitis, head injury, this is not meant to be an all-inclusive list. Of note, interracial hemorrhage and central venous thrombosis were considered however pt's headache described as mild in nature, started as one of her typical migraine HAs would, no red flag symptoms, fever or neuro deficiits, therefor I did not feel additional testing/ imaging indicated at this time to further r/o EKG interpreted by me (3pts min.). @ -As above X-rays interpreted by me (1pt min.). Chest XR shows no cardiomegaly, consolidations or pleural effusions, I agree with radiologist interpretation CT interpreted by me (1pt min.). On my review of CT brain I see no evidence of hemorrhage or mass, agree w/ rad iologist interpretation U/S interpreted by me (1pt. min.). @ -None done What testing was considered but not performed or refused? (CT, X-rays, U/S, labs)? Why? @ -None What meds were considered but not given or refused? Why? @Consider Tylenol and Toradol however patient politely declined additional pain control Did you discuss the management of the patient with other professionals (professionals i.e. , PA, ROTATIONAL MOULDING OPERATOR, lab, RT, psych nurse, social media strategist, cooking chef, teacher, radiological defense officer, outpatient case manager)? Give summary @ -No Was smoking cessation discussed for >3mins.? @ -No Was critical care preformed (if so, how long)? @ -No Were there social determinants of health that impacted care today? How? (Ho melessness, low income, unemployed, alcoholism, drug addiction, transportation, low edu. Level, literacy, decrease access to med. care, prison, rehab)? @ -No Was there de-escalation of care discussed even if they declined (Discuss DNR or withdrawal of care, Hospice)? @ -No What co-morbidities impacted this encounter? (DM, HTN, Smoking, COPD, CAD, Cancer, CVA, ARF, Chemo, Hep., AIDS, mental health diagnosis, sleep apnea, morbid obesity)? @Hypothyroidism, BMI >40 Was patient admitted / discharged? Hospital course, mention meds given and route, prescriptions, significant lab abnormalities, going to OR and other pertinent info. @Discharged - patient is a 44-year-old female history hypothyroidism presenting today for intermittent chest pain and mild headache. Hypertensive at urgent care this morning. On my assessment patient is well-appearing in no acute distress, blood pressure 154/105. Mildly tachycardia heart rate 101. Physical exam overall benign, no focal neuro deficits. No lower extremity edema. Discussed with patient obtaining CT brain, will obtain chest pain labs as well, give aspirin, patient declined any additional pain control. Will obtain single troponin as patient's pain is been going on since Friday and is secondary to ACS would expect a rise in troponin at this point. Labs and imaging reviewed. Grossly within normal limits. Abnormal values not concerning for acute pathology related to presenting complaint. Troponin less than 0.012. D-dimer 0.47. Chest x-ray ordered to evaluate for further etiology of chest pain. Read by radiologist as no acute process. On reassessment patient endorses mild movement of symptoms. I discussed with her reassuring labs and imaging. Heart score of 2, patient low risk for ACS. I did discuss plan for discharge home given these findings I did offer her the opportunity to remain for observation, she was agreeable with plan for discharge. She has seen Dr. Hanks in the past so I would direct her to follow-up with him regarding her chest pain and her primary care provider regarding today's visit. In my medical judgment there is currently no evidence of an immediate life- threatening or surgical condition. Discharge is therefore indicated at this time. Discharge treatment instructions, follow up instructions, and appropriate emergency department return precautions were discussed with the patient and/or m edical decision maker. Patient and/or medical decision maker expressed understanding of and agreed with the treatment plan, follow up instructions, and emergency department return precaution. All patient's and/or medical decision maker's questions were answered. Undiagnosed new problem with uncertain prognosis? @ -No Drug Therapy requiring intensive monitoring for toxicity (Heparin, Nitro, Insuli n, Cardizem)? @ -No Were any procedures done? @ -No Diagnosis/symptom? Hypertension, headache, chest pain Acute, or Chronic, or Acute on Chronic? @Acute Uncomplicated (without systemic symptoms) or Complicated (systemic symptoms)? @Complicated Side effects of treatment? @ -No Exacerbation, Progression, or Severe Exacerbation? @ -No - Lab Data Result diagrams: 08/01/24 13:10 08/01/24 13:10 Lab Results 08/01/24 08/01/24 08/01/24 Range/Units 13:10 13:10 13:10 WBC 9.7 (3.8-10.6) k/uL RBC 4.78 (3.80-5.40) m/uL Hgb 14.6 (11.4-16.0) gm/dL Hct 44.3 (34.0-46.0) % MCV 92.8 (80.0-100.0) fL MCH 30.5 (25.0-35.0) pg MCHC 32.9 (31.0-37.0) g/dL RDW 12.7 (11.5-15.5) % Plt Count 353 (150-450) k/uL MPV 6.9 Neutrophils % 72 % Lymphocytes % 20 % Monocytes % 4 % Eosinophils % 2 % Basophils % 1 % Neutrophils # 7.0 (1.3-7.7) k/uL Lymphocytes # 1.9 (1.0-4.8) k/uL Monocytes # 0.4 (0-1.0) k/uL Eosinophils # 0.2 (0-0.7) k/uL Basophils # 0.1 (0-0.2) k/uL PT 11.3 (10.0-12.5) sec INR 1.0 (<1.2) APTT 23.9 (22.0-30.0) sec D-Dimer 0.47 (<0.60) mg/L FEU Sodium 139 (137-145) mmol/L Potassium 4.0 (3.5-5.1) mmol/L Chloride 106 (98-107) mmol/L Carbon Dioxide 20 L (22-30) mmol/L Anion Gap 13 mmol/L BUN 10 (7-17) mg/dL Creatinine 0.74 (0.52-1.04) mg/dL Est GFR (CKD-EPI)AfAm >90 (>60 ml/min/1.73 sqM) Est GFR (CKD-EPI)NonAf >90 (>60 ml/min/1.73 sqM) Glucose 93 (74-99) mg/dL Calcium 9.1 (8.4-10.2) mg/dL Magnesium 2.1 (1.6-2.3) mg/dL Total Bilirubin 0.7 (0.2-1.3) mg/dL AST 24 (14-36) U/L ALT 21 (4-34) U/L Alkaline Phosphatase 63 (38-126) U/L Troponin I (0.000-0.034) ng/mL NT-Pro-B Natriuret Pep 88 pg/mL Total Protein 8.0 (6.3-8.2) g/dL Albumin 4.5 (3.5-5.0) g/dL Lipase 74 (23-300) U/L Influenza Type A (PCR) (Not Detectd) Influenza Type B (PCR) (Not Detectd) RSV (PCR) (Not Detectd) SARS-CoV-2 (PCR) (Not Detectd) 08/01/24 08/01/24 Range/Units 13:10 13:10 WBC (3.8-10.6) k/uL RBC (3.80-5.40) m/uL Hgb (11.4-16.0) gm/dL Hct (34.0-46.0) % MCV (80.0-100.0) fL MCH (25.0-35.0) pg MCHC (31.0-37.0) g/dL RDW (11.5-15.5) % Plt Count (150-450) k/uL MPV Neutrophils % % Lymphocytes % % Monocytes % % Eosinophils % % Basophils % % Neutrophils # (1.3-7.7) k/uL Lymphocytes # (1.0-4.8) k/uL Monocytes # (0-1.0) k/uL Eosinophils # (0-0.7) k/uL Basophils # (0-0.2) k/uL PT (10.0-12.5) sec INR (<1.2) APTT (22.0-30.0) sec D-Dimer (<0.60) mg/L FEU Sodium (137-145) mmol/L Potassium (3.5-5.1) mmol/L Chloride (98-107) mmol/L Carbon Dioxide (22-30) mmol/L Anion Gap mmol/L BUN (7-17) mg/dL Creatinine (0.52-1.04) mg/dL Est GFR (CKD-EPI)AfAm (>60 ml/min/1.73 sqM) Est GFR (CKD-EPI)NonAf (>60 ml/min/1.73 sqM) Glucose (74-99) mg/dL Calcium (8.4-10.2) mg/dL Magnesium (1.6-2.3) mg/dL Total Bilirubin (0.2-1.3) mg/dL AST (14-36) U/L ALT (4-34) U/L Alkaline Phosphatase (38-126) U/L Troponin I <0.012 (0.000-0.034) ng/mL NT-Pro-B Natriuret Pep pg/mL Total Protein (6.3-8.2) g/dL Albumin (3.5-5.0) g/dL Lipase (23-300) U/L Influenza Type A (PCR) Not Detected (Not Detectd) Influenza Type B (PCR) Not Detected (Not Detectd) RSV (PCR) Not Detected (Not Detectd) SARS-CoV-2 (PCR) Not Detected (Not Detectd) Disposition Clinical Impression: Hypertension, Headache, Chest pain Disposition: HOME SELF-CARE Condition: Good Instructions (If sedation given, give patient instructions): Chest Pain (ED) Additional Instructions: Every disease is a spectrum and a small chance still exists that a serious condition could develop, for this reason, please monitor yourself closely for new, changing or worsening symptoms, symptoms that persist beyond 48 hours, shortness of breath, swelling in your legs, coughing up blood, severe headache like you never had before, changes in vision, numbness, weakness slurred speech or strokelike symptoms, fever, inability to tolerate/keep down fluids or your medications, inability to follow up with outpatient providers as instructed and should you experience these symptoms or should you have any further concerns for your wellbeing please return to the ED or call 911 immediately. Please follow-up with your wildlife manager as soon as possible, preferably within the next 2 to 3 days regarding this visit. Your pain can be treated with ibuprofen and acetaminophen. You can take up to 400-600 mg of ibuprofen (Advil, Motrin) 3 times daily (every 8 hours) but can also use lower doses if this relieves your pain. Some people prefer naproxen (Aleve, Naprosyn) which can be taken in doses of 500 mg up to twice a day. Do not take both of these medicines together, and do not combine either with ketorolac (Toradol), meloxicam (Mobic), or indomethacin (Tivorbex). Some people can develop stomach discomfort with higher doses of either ibuprofen or naproxen, if this develops decrease your dose or stop taking it. If you need to take this dose daily for more than a week, please schedule an appointment for re-evaluation with your PCP. Please take these medications with food. You can take up to 1000 mg of acetaminophen (Tylenol) every 6 hours. Be careful as this is included in some medicines like Nyquil, [place], Percocet, Vicodin, STANBACK, Goody's Powders, and Excedrin. You can also use lidocaine patches for topical pain. You can purchase 4% patches over the counter at most drug stores. These can be helpful for pain from your muscles or bones. PLEASE call your primary care physician as soon as possible to arrange / discuss plan for followup appointment. Appointment in the next 1-3 days is strongly encouraged if possible. PLEASE let us know here before you leave if there is anything further we can do to be of any assistance. Take care and feel Better! Is patient prescribed a controlled substance at d/c from ED?: No Referrals: Bill Hamm DO [Primary Care Provider] - 1-2 days
[2024-08-01 14:08] LABS: Influenza A Not Detected (Not Detectd); Influenza B Not Detected (Not Detectd); RSV Not Detected (Not Detectd)
--- NOTE | 2024-08-01 14:20 | XR ---
EXAMINATION TYPE: XR chest 2V DATE OF EXAM: 08/01/2024 2:13 PM COMPARISON: Chest radiographs from 01/28/2020 CLINICAL INDICATION: Female, 44 years old with history of bilat chest pain; [facility] TECHNIQUE: XR chest 2V Frontal and lateral views of the chest. FINDINGS: Lungs/Pleura: There is no evidence of pleural effusion, focal consolidation, or pneumothorax. Pulmonary vascularity: Unremarkable. Heart/mediastinum: Cardiomediastinal silhouette is unremarkable. Musculoskeletal: No acute osseous pathology. IMPRESSION: No acute cardiopulmonary disease/process. [facility], , 08/01/2024 2:17 PM
[2024-08-01 14:27] VITALS: RESP 18
--- NOTE | 2024-08-01 14:35 | CT ---
EXAMINATION TYPE: CT brain wo con DATE OF EXAM: 08/01/2024 2:26 PM COMPARISON: None. CLINICAL INDICATION: Female, 44 years old with history of HTN [place]ORD[place], hypertension, headache x 3 days. TECHNIQUE: Brain: Axial CT images of the brain were obtained with coronal and sagittal reformats created and rev iewed. Contrast used: None. Oral contrast used: None. CT DLP: 1062.4 mGycm, Automated exposure control for dose reduction was used. FINDINGS: Brain: Extra-axial spaces: No abnormal extra-axial fluid collections. Ventricular system: Within normal limits Cerebral parenchyma: No acute intraparenchymal hemorrhage or mass effect. The castillo-white junction is well differentiated. Cerebellum: Unremarkable. Mass effect: No evidence of midline shift. Intracranial vasculature: unremarkable Soft tissues: Normal. Calvarium/osseous structures: No depressed skull fracture. Paranasal sinuses and mastoid air cells: Mild scattered paranasal sinus disease. Visualized orbits: Orbital contents are intact. IMPRESSION: No acute intracranial process. [facility], , 08/01/2024 2:33 PM
[2024-08-01 15:19] VITALS: BP 141/81; PULSE 74
== END 2024-08-01 15:19 | disposition home or self-care (01) ==
LOC: EC 12:00
DX: I10 Essential (primary) hypertension (principal); R07.89 Other chest pain; R00.0 Tachycardia, unspecified; G43.909 Migraine, unspecified, not intractable, without status migrainosus; E05.90 Thyrotoxicosis, unspecified without thyrotoxic crisis or storm
CPT/HCPCS: 36415; 70450; 71046; 80053; 83690; 83735; 83880; 84484; 85025; 85379; 85610; 85730; 87636; 93005; 96360; 99285